=== PATIENT | male | born 1965 | race Two or more races ===

== ENCOUNTER 2023-01-21 19:37 | Inpatient (IN) | payer MEDICAID, OTHER ==
[~2023-01-21] VITALS: Ht 180.3 cm; Wt 86.0 kg
[2023-01-21 20:38] LABS: Basophils # (auto) 0 10 ^3/uL (0-0.2); Basophils % (auto) 0.5 % (0.0-2.0); Eosinophils # (auto) 0 10 ^3/uL (0-0.8); Eosinophils % (auto) 0.2 % (0.0-7.0); Hematocrit 40.1 % (41.0-53.0); Hemoglobin 13.3 g/dL (13.5-17.5); Lymphocytes # (auto) 1.9 10 ^3/uL (0.4-5.4); Lymphocytes % (auto) 23.2 % (10.0-50.0); Mean Corpuscular Hemoglobin 28.9 pg (28.0-32.0); Mean Corpuscular Hgb Conc. 33.2 g/dL (32.0-36.0); Monocytes # (auto) 0.4 10 ^3/uL (0-1.3); Monocytes % (auto) 4.7 % (0.0-12.0); Neutrophils # (auto) 5.9 10 ^3/uL (1.6-8.6); Neutrophils % (auto) 71.4 % (37.0-80.0); Nucleated Red Blood Cells % 0.2 %; Red Blood Cells 4.61 10^6/uL (4.5-5.90); Red Cell Distribution Width 14.1 % (11.8-14.3); White Blood Cell 8.3 10^3/uL (4.4-10.8)
[2023-01-21 20:42] LABS: Urine Bacteria NONE SEEN /hpf (None Seen); Urine Blood Negative /uL (Negative); Urine Clarity Clear (Clear); Urine Color Yellow (Yellow); Urine Mucus FEW (None Seen); Urine Protein, UAD TRACE (Negative); Urine Specific Gravity 1.029 (1.001-1.035); Urine Urobilinogen Normal (Negative); Urine WBC 1 /hpf (0 - 3); Urine pH 5.5 (5.0-8.0)
[2023-01-21 20:58] LABS: Albumin 3.8 g/dL (3.4-5.0); Calcium 8.7 mg/dL (8.5-10.1); Potassium 4.2 mmol/L (3.5-5.1)
[2023-01-21 21:01] LABS: BUN/Creatinine Ratio 19.1 (10.0-20.0); Total Protein 6.9 g/dL (6.4-8.2)
[2023-01-21] MEDS ORDERED: IOHEXOL 350 MG/ML 100ML IJ ONE (23:23)
[2023-01-21] MEDS ORDERED: MORPHINE SULFATE 4 MG/ML SYR/VIAL IV ONE (23:30)
[2023-01-21] MEDS ORDERED: ONDANSETRON HCL 4 MG/2 ML VIAL IV ONE (23:30)
[2023-01-21] MEDS ORDERED: ASPirin 325 MG TAB PO ONE (23:30)
[2023-01-21] MEDS ORDERED: HEPARIN SODIUM (PORCINE) 5000 UNITS/ML 1ML VIAL IV ONE (23:30)
[2023-01-22] VITALS (11 sets, daily range): BP systolic 95–104; BP diastolic 69–77; PULSE 77–97; RESP 15–23; TEMP 97.7–98.3; O2SAT 91–96
[2023-01-22] MEDS ORDERED: MORPHINE SULFATE INJ 2 MG/ml SYRG IM ONE
[2023-01-22 00:10] LABS: INR 1.07 (0.9-1.15); Partial Thromboplastin Time 28.2 SEC (24.5-34.5); Prothrombin Time 11.2 sec (9.3-11.8)
[2023-01-22] MEDS ORDERED: FUROSEMIDE 20 MG/2 ML VIAL IV ONE (00:45)
[2023-01-22] MEDS ORDERED: ACETAMINOPHEN 325 MG TAB PO PRN (00:45)
[2023-01-22] MEDS ORDERED: AZITHROMYCIN 500MG/ 250ML 250 ML IV ONE (00:45)
[2023-01-22] MEDS ORDERED: NITROGLYCERIN 0.4 MG SL TAB SL PRN (00:45)
[2023-01-22] MEDS ORDERED: MORPHINE SULFATE INJ 2 MG/ml SYRG IV PRN ×2 (00:45)
[2023-01-22] MEDS ORDERED: DOCUSATE SOD 100 MG CAP PO PRN (00:45)
[2023-01-22] MEDS ORDERED: ONDANSETRON HCL 4 MG/2 ML VIAL IV PRN (00:45)
[2023-01-22] MEDS ORDERED: HYDROcodone-ACET 5/325MG TAB PO PRN (00:45)
[2023-01-22] MEDS ORDERED: DEXTROSE (50%) 50ML SYRG IV PRN (00:45)
[2023-01-22 03:45] LABS: Rapid Influenza A Negative (Negative)
[2023-01-22 03:46] LABS: COVID19 ANTIGEN SOFIA FIA NEGATIVE (NEGATIVE); Rapid Influenza B Negative (Negative)
[2023-01-22 05:34] LABS: Potassium 3.8 mmol/L (3.5-5.1)
[2023-01-22 05:43] LABS: Albumin 3.8 g/dL (3.4-5.0); BUN/Creatinine Ratio 17.2 (10.0-20.0); Bilirubin, Total 2.2 mg/dL (0.2-1.0); Calcium 8.7 mg/dL (8.5-10.1); Total Protein 7.4 g/dL (6.4-8.2)
[2023-01-22 05:48] LABS: Basophils # (auto) 0.1 10 ^3/uL (0-0.2); Basophils % (auto) 0.6 % (0.0-2.0); Eosinophils # (auto) 0.1 10 ^3/uL (0-0.8); Eosinophils % (auto) 1.1 % (0.0-7.0); Hematocrit 39.7 % (41.0-53.0); Hemoglobin 13.4 g/dL (13.5-17.5); Lymphocytes # (auto) 3.8 10 ^3/uL (0.4-5.4); Lymphocytes % (auto) 42.4 % (10.0-50.0); Mean Corpuscular Hemoglobin 29.4 pg (28.0-32.0); Mean Corpuscular Hgb Conc. 33.6 g/dL (32.0-36.0); Mean Corpuscular Volume 87.4 fL (80.0-100.0); Monocytes # (auto) 0.6 10 ^3/uL (0-1.3); Monocytes % (auto) 6.5 % (0.0-12.0); Neutrophils # (auto) 4.4 10 ^3/uL (1.6-8.6); Neutrophils % (auto) 49.4 % (37.0-80.0); Nucleated Red Blood Cells % 0.1 %; Red Blood Cells 4.54 10^6/uL (4.5-5.90); Red Cell Distribution Width 13.4 % (11.8-14.3); White Blood Cell 8.9 10^3/uL (4.4-10.8)
[2023-01-22] MEDS: SODIUM CHLOR 0.9% PF (SALINE LOCK) 10ML VIAL/SYR IV SCH ×3 (06:11→21:36)
[2023-01-22] MEDS: ACCU-CHEK COMFORT CURVE STRIP VI SCH ×4 (07:55→21:30)
[2023-01-22] MEDS: InsuLIN REG 1unit/0.01ml Soln (100units/ml) SC SCH ×4 (07:58→21:35)
[2023-01-22] MEDS ORDERED: SODIUM CHLORIDE 0.9% 1,000 ML IV ONE (08:15)
[2023-01-22 09:14] LABS: Cholesterol 150 mg/dL (< 200); HDL Cholesterol 41 mg/dL (40-59); LDL Cholesterol 95 mg/dL (< 100); Triglycerides 125 mg/dL (< 150)
[2023-01-22 09:14] LABS: Alcohol, Urine < 3.0 mg/dL (0-10); Amphetamine Screen, Urine NEGATIVE (NEGATIVE); Barbiturate Scree,Urine NEGATIVE (NEGATIVE); Benzodiazephine Screen, Urine NEGATIVE (NEGATIVE); Cannabinoid Screen, Urine NEGATIVE (NEGATIVE); Cocaine Screen, Urine NEGATIVE (NEGATIVE); Opiate Scree,Urine NEGATIVE (NEGATIVE); Phencyclidine Screen, Urine NEGATIVE (NEGATIVE)
[2023-01-22] MEDS: ASPirin 81 mg TAB PO SCH (10:00)
[2023-01-22] MEDS: FUROSEMIDE 40 MG/4 ML VIAL IV SCH (10:00)
[2023-01-22] MEDS: HEPARIN DRIP/D5W 100UNITS/ML 250 ML IV SCH (11:11)
[2023-01-22] MEDS ORDERED: METF-372 PO (12:19)
[2023-01-22] MEDS ORDERED: LIDOCAINE 2%HCL (LOCAL ANESTH.) INJ 20ML MDV ONE (13:03)
[2023-01-22] MEDS ORDERED: IOHEXOL 350 MG/ML 100ML IJ ONE (13:03)
[2023-01-22] MEDS ORDERED: ANGIOMAX 250 MG VIAL IV ONE (13:07)
[2023-01-22] MEDS ORDERED: fentaNYL CITRATE 100 MCG/2 ML VL ONE (13:08)
[2023-01-22] MEDS ORDERED: VERAPAMIL 2.5MG/ML INJ 2ML VIAL IV ONE (13:08)
[2023-01-22] MEDS ORDERED: SODIUM CHL 0.9% 50 ML ONE (13:08)
[2023-01-22] MEDS ORDERED: MIDAZOLAM HCL 2MG/2ML 2ml VIAL (1mg/ml) ONE (13:08)
[2023-01-22] MEDS ORDERED: HEPARIN SODIUM (PORCINE) 5000 UNITS/ML 1ML VIAL ONE (13:10)
[2023-01-22] MEDS: ATORVASTATIN 20 MG TAB PO SCH (21:35)
[2023-01-22] MEDS ORDERED: AZITHROMYCIN 500MG/ 250ML 250 ML IV SCH (22:00)
[2023-01-23] VITALS (7 sets, daily range): BP systolic 99–113; BP diastolic 70–80; PULSE 83–93; RESP 16–21; TEMP 97.5–98.7; O2SAT 97–98
[2023-01-23] MEDS: HEPARIN DRIP/D5W 100UNITS/ML 250 ML IV SCH (00:30)
[2023-01-23] MEDS: SODIUM CHLOR 0.9% PF (SALINE LOCK) 10ML VIAL/SYR IV SCH ×3 (05:47→21:48)
[2023-01-23 06:14] LABS: Basophils # (auto) 0.1 10 ^3/uL (0-0.2); Basophils % (auto) 0.9 % (0.0-2.0); Eosinophils # (auto) 0.4 10 ^3/uL (0-0.8); Eosinophils % (auto) 4.5 % (0.0-7.0); Lymphocytes # (auto) 2.5 10 ^3/uL (0.4-5.4); Lymphocytes % (auto) 31.9 % (10.0-50.0); Mean Corpuscular Hemoglobin 29.1 pg (28.0-32.0); Mean Corpuscular Hgb Conc. 33.4 g/dL (32.0-36.0); Mean Corpuscular Volume 87.1 fL (80.0-100.0); Monocytes # (auto) 0.6 10 ^3/uL (0-1.3); Monocytes % (auto) 7.7 % (0.0-12.0); Neutrophils # (auto) 4.4 10 ^3/uL (1.6-8.6); Nucleated Red Blood Cells % 0.1 %; Red Blood Cells 4.47 10^6/uL (4.5-5.90); Red Cell Distribution Width 13.7 % (11.8-14.3)
[2023-01-23] MEDS: ACCU-CHEK COMFORT CURVE STRIP VI SCH ×4 (06:29→21:48)
[2023-01-23] MEDS: InsuLIN REG 1unit/0.01ml Soln (100units/ml) SC SCH ×4 (06:31→21:51)
[2023-01-23 06:38] LABS: Potassium 4.4 mmol/L (3.5-5.1)
[2023-01-23 06:41] LABS: Albumin 3.3 g/dL (3.4-5.0); BUN/Creatinine Ratio 22.6 (10.0-20.0); Calcium 8.4 mg/dL (8.7-10.4)
[2023-01-23 06:52] LABS: Total Protein 6.4 g/dL (6.4-8.2)
[2023-01-23] MEDS ORDERED: ADENOSINE 80 MG in GIVE UN-DILUTED 0 ML IV STA (08:57)
[2023-01-23] MEDS: ASPirin 81 mg TAB PO SCH (09:49)
[2023-01-23] MEDS: FUROSEMIDE 40 MG/4 ML VIAL IV SCH (09:51)
[2023-01-23] MEDS: METOPROLOL SUCCINATE XL 50 MG TAB PO SCH (11:39)
[2023-01-23] MEDS: VALSARTAN 80 MG TAB PO SCH (11:40)
[2023-01-23] MEDS: DOXYCYCLINE 100MG/250ML 250 ML IV SCH ×2 (11:40→23:02)
[2023-01-23] MEDS: ATORVASTATIN 20 MG TAB PO SCH (21:52)
[2023-01-23] MEDS ORDERED: CARVEDILOL 3.125 MG TAB PO SCH (22:00)
[2023-01-24] VITALS (8 sets, daily range): BP systolic 99–107; BP diastolic 58–83; PULSE 68–95; RESP 16–20; TEMP 97.7–99; O2SAT 91–100
[2023-01-24] MEDS: HEPARIN DRIP/D5W 100UNITS/ML 250 ML IV SCH (00:30)
[2023-01-24] MEDS: SODIUM CHLOR 0.9% PF (SALINE LOCK) 10ML VIAL/SYR IV SCH ×3 (05:50→21:34)
[2023-01-24] MEDS: ACCU-CHEK COMFORT CURVE STRIP VI SCH ×4 (06:32→21:35)
[2023-01-24] MEDS: InsuLIN REG 1unit/0.01ml Soln (100units/ml) SC SCH ×4 (06:34→21:39)
[2023-01-24] MEDS: EMPAGLIFLOZIN 10 MG TAB PO SCH (10:15)
[2023-01-24] MEDS ORDERED: FUROSEMIDE 20 MG/2 ML VIAL IV PRN (10:15)
[2023-01-24] MEDS: FUROSEMIDE 40 MG/4 ML VIAL IV SCH (10:17)
[2023-01-24] MEDS: ASPirin 81 mg TAB PO SCH (10:18)
[2023-01-24] MEDS: METOPROLOL SUCCINATE XL 50 MG TAB PO SCH (10:18)
[2023-01-24] MEDS: VALSARTAN 80 MG TAB PO SCH (10:19)
[2023-01-24] MEDS: DOXYCYCLINE 100MG/250ML 250 ML IV SCH ×2 (11:18→22:43)
[2023-01-24] MEDS: ATORVASTATIN 20 MG TAB PO SCH (21:33)
[2023-01-25] VITALS (7 sets, daily range): BP systolic 97–106; BP diastolic 67–75; PULSE 66–91; RESP 16–18; TEMP 97.6–98.6; O2SAT 90–97
[2023-01-25] MEDS: HEPARIN DRIP/D5W 100UNITS/ML 250 ML IV SCH (00:30)
[2023-01-25] MEDS: SODIUM CHLOR 0.9% PF (SALINE LOCK) 10ML VIAL/SYR IV SCH ×3 (06:00→21:55)
[2023-01-25 06:08] LABS: Basophils # (auto) 0.1 10 ^3/uL (0-0.2); Basophils % (auto) 0.9 % (0.0-2.0); Eosinophils # (auto) 0.5 10 ^3/uL (0-0.8); Eosinophils % (auto) 6.4 % (0.0-7.0); Hematocrit 42.3 % (41.0-53.0); Hemoglobin 13.9 g/dL (13.5-17.5); Lymphocytes # (auto) 2.6 10 ^3/uL (0.4-5.4); Lymphocytes % (auto) 33.4 % (10.0-50.0); Mean Corpuscular Hemoglobin 28.7 pg (28.0-32.0); Mean Corpuscular Hgb Conc. 32.9 g/dL (32.0-36.0); Mean Corpuscular Volume 87.1 fL (80.0-100.0); Monocytes # (auto) 0.6 10 ^3/uL (0-1.3); Monocytes % (auto) 7.8 % (0.0-12.0); Neutrophils % (auto) 51.5 % (37.0-80.0); Nucleated Red Blood Cells % 0.2 %; Red Blood Cells 4.86 10^6/uL (4.5-5.90); Red Cell Distribution Width 13.7 % (11.8-14.3); White Blood Cell 7.7 10^3/uL (4.4-10.8)
[2023-01-25 06:20] LABS: Anion Gap 5.8 (5-15); Carbon Dioxide 28.2 mmol/L (20-30); Chloride 104 mmol/L (98-107); Potassium 4.1 mmol/L (3.5-5.1); Sodium 138 mmol/L (136-145)
[2023-01-25 06:27] LABS: BUN/Creatinine Ratio 13.8 (10.0-20.0); Blood Urea Nitrogen 11 mg/dL (9-23); Glucose 117 mg/dL (74-106)
[2023-01-25] MEDS: InsuLIN REG 1unit/0.01ml Soln (100units/ml) SC SCH ×4 (06:35→21:32)
[2023-01-25] MEDS: ACCU-CHEK COMFORT CURVE STRIP VI SCH ×4 (06:35→21:19)
[2023-01-25] MEDS: EMPAGLIFLOZIN 10 MG TAB PO SCH (09:29)
[2023-01-25] MEDS: ASPirin 81 mg TAB PO SCH (09:30)
[2023-01-25] MEDS: SPIRONOLACTONE 25 MG TAB PO SCH (09:31)
[2023-01-25] MEDS: VALSARTAN 80 MG TAB PO SCH (09:31)
[2023-01-25] MEDS: METOPROLOL SUCCINATE XL 50 MG TAB PO SCH (09:32)
[2023-01-25] MEDS: FUROSEMIDE 40 MG/4 ML VIAL IV SCH ×3 (09:32→10:00)
[2023-01-25] MEDS: DOXYCYCLINE 100MG/250ML 250 ML IV SCH ×2 (11:25→23:11)
[2023-01-25] MEDS: ATORVASTATIN 20 MG TAB PO SCH (21:19)
[2023-01-26] MEDS: HEPARIN DRIP/D5W 100UNITS/ML 250 ML IV SCH (00:06)
[2023-01-26 05:00] VITALS: BP 97/61; PULSE 85; RESP 18; TEMP 98.2; O2SAT 98
[2023-01-26] MEDS: SODIUM CHLOR 0.9% PF (SALINE LOCK) 10ML VIAL/SYR IV SCH (05:37)
[2023-01-26] MEDS: ACCU-CHEK COMFORT CURVE STRIP VI SCH (06:14)
[2023-01-26] MEDS: InsuLIN REG 1unit/0.01ml Soln (100units/ml) SC SCH (06:14)
[2023-01-26 08:00] VITALS: BP 107/69; PULSE 75; PULSE 83; RESP 16; TEMP 98.4; O2SAT 99
[2023-01-26] MEDS: FUROSEMIDE 40 MG/4 ML VIAL IV SCH (08:35)
[2023-01-26] MEDS: EMPAGLIFLOZIN 10 MG TAB PO SCH (08:39)
[2023-01-26] MEDS: METOPROLOL SUCCINATE XL 50 MG TAB PO SCH (08:40)
[2023-01-26] MEDS: ASPirin 81 mg TAB PO SCH (08:41)
[2023-01-26] MEDS: SPIRONOLACTONE 25 MG TAB PO SCH (08:41)
[2023-01-26] MEDS: VALSARTAN 80 MG TAB PO SCH (08:42)
[2023-01-26] MEDS ORDERED: SPIR25TA PO (09:59)
[2023-01-26] MEDS ORDERED: METO25TA93 PO (09:59)
[2023-01-26] MEDS ORDERED: ATO40T PO (09:59)
[2023-01-26] MEDS ORDERED: ASPI-498 PO (09:59)
[2023-01-26] MEDS ORDERED: FURO1TAB31 PO (09:59)
[2023-01-26] MEDS ORDERED: VALS40TA2 PO (10:11)
[2023-01-26 10:57] VITALS: BP 107/69; PULSE 83; RESP 16; TEMP 36.9; O2SAT 95
== END 2023-01-26 12:40 | disposition home or self-care (01) | DRG 192 ==
LOC: ER 19:40 → TELE 01-22 00:42 → TELE-EAST 01-22 10:48
PROVIDERS: ADMIT Nurse Practitioner Family; ATTEND Family Medicine
PROC: B211YZZ Fluoroscopy of Multiple Coronary Arteries using Other Contrast (ICD-10-PCS; principal; 2023-01-22)
DX: I50.21 Acute systolic (congestive) heart failure (principal); I42.0 Dilated cardiomyopathy; J18.9 Pneumonia, unspecified organism; E11.65 Type 2 diabetes mellitus with hyperglycemia; E66.9 Obesity, unspecified; Z86.16 Personal history of COVID-19; I42.9 Cardiomyopathy, unspecified; I34.0 Nonrheumatic mitral (valve) insufficiency; I25.10 Atherosclerotic heart disease of native coronary artery without angina pectoris; M25.512 Pain in left shoulder; I25.5 Ischemic cardiomyopathy; R94.31 Abnormal electrocardiogram [ECG] [EKG]; Z68.26 Body mass index [BMI] 26.0-26.9, adult; I25.2 Old myocardial infarction; Z87.01 Personal history of pneumonia (recurrent)
CPT/HCPCS: 36415; 71045; 71275; 78452; 80048; 80053; 80061; 80307; 81001; 82962; 83036; 83605; 83880; 84443; 84484; 85025; 85379; 85610; 85730; 87426; 87804; 93005; 93017; 93306; 93454; 99152; 99291; G0378; J0153; J1815; J2250; J2405; J3490

== ENCOUNTER 2023-06-02 20:54 | Emergency (ER) | payer MEDICAID ==
[~2023-06-02] VITALS: Ht 182.9 cm; Wt 84.5 kg
[~2023-06-02 20:54] MED LIST: ASPI-498 PO; ATO40T PO; FURO1TAB31 PO; METF-372 PO; METO25TA93 PO; SPIR25TA PO; VALS40TA2 PO
[2023-06-02 21:18] LABS: Basophils # (auto) 0.1 10 ^3/uL (0-0.2); Eosinophils # (auto) 0.3 10 ^3/uL (0-0.8); Eosinophils % (auto) 3.5 % (0.0-7.0); Hematocrit 45.6 % (41.0-53.0); Hemoglobin 15.7 g/dL (13.5-17.5); Lymphocytes # (auto) 4.5 10 ^3/uL (0.4-5.4); Lymphocytes % (auto) 53.7 % (10.0-50.0); Mean Corpuscular Hemoglobin 30.5 pg (28.0-32.0); Mean Corpuscular Hgb Conc. 34.3 g/dL (32.0-36.0); Mean Corpuscular Volume 88.9 fL (80.0-100.0); Monocytes # (auto) 0.6 10 ^3/uL (0-1.3); Monocytes % (auto) 6.8 % (0.0-12.0); Neutrophils # (auto) 2.9 10 ^3/uL (1.6-8.6); Nucleated Red Blood Cells % 0.1 %; Red Blood Cells 5.12 10^6/uL (4.5-5.90); Red Cell Distribution Width 15.2 % (11.8-14.3); White Blood Cell 8.3 10^3/uL (4.4-10.8)
[2023-06-02 21:32] LABS: INR 1.01 (0.9-1.15); Partial Thromboplastin Time 28.8 SEC (24.5-34.5); Prothrombin Time 10.6 sec (9.3-11.8)
[2023-06-02 21:39] LABS: Albumin 4.7 g/dL (3.2-4.8); Alkaline Phosphatase 132 U/L (46-116); Anion Gap 8 (5-15); BUN/Creatinine Ratio 26.1 (10.0-20.0); Bilirubin, Total 2.9 mg/dL (0.2-1.0); Blood Urea Nitrogen 24 mg/dL (9-23); Calcium 9.4 mg/dL (8.7-10.4); Carbon Dioxide 26 mmol/L (20-30); Chloride 104 mmol/L (98-107); Glucose 172 mg/dL (74-106); Magnesium 2.2 mg/dL (1.6-2.6); Sodium 138 mmol/L (136-145)
[2023-06-02 22:51] VITALS: BP 96/65; TEMP 98.1; O2SAT 96
[2023-06-02 22:52] VITALS: PULSE 68; RESP 18
[2023-06-02 23:03] LABS: Alanine Aminotransferase 44 U/L (7-40); Aspartate Aminotransferase 29 U/L (13-40)
== END 2023-06-02 22:33 | disposition home or self-care (01) ==
LOC: ER 20:54
DX: I25.10 Atherosclerotic heart disease of native coronary artery without angina pectoris (principal); I49.3 Ventricular premature depolarization; R00.2 Palpitations; E11.9 Type 2 diabetes mellitus without complications; I50.9 Heart failure, unspecified; Z98.890 Other specified postprocedural states; Z79.899 Other long term (current) drug therapy
CPT/HCPCS: 36415; 71045; 80053; 83735; 83880; 84484; 85025; 85610; 85730; 93005

== ENCOUNTER 2024-01-29 16:09 | Inpatient (IN) | payer MEDICAID ==
[~2024-01-29] VITALS: Ht 182.9 cm; Wt 80.2 kg
[~2024-01-29 16:09] MED LIST changes: -ATO40T PO; +ATOR-507 PO
[2024-01-29 17:06] LABS: Basophils # (auto) 0.1 10 ^3/uL (0-0.2); Basophils % (auto) 0.5 % (0.0-2.0); Eosinophils # (auto) 0.2 10 ^3/uL (0-0.8); Eosinophils % (auto) 1.6 % (0.0-7.0); Hemoglobin 16.7 g/dL (13.5-17.5); Lymphocytes # (auto) 3.3 10 ^3/uL (0.4-5.4); Lymphocytes % (auto) 33.7 % (10.0-50.0); Mean Corpuscular Hemoglobin 31.6 pg (28.0-32.0); Mean Corpuscular Hgb Conc. 35.4 g/dL (32.0-36.0); Mean Corpuscular Volume 89.2 fL (80.0-100.0); Monocytes # (auto) 0.8 10 ^3/uL (0-1.3); Monocytes % (auto) 7.6 % (0.0-12.0); Neutrophils # (auto) 5.6 10 ^3/uL (1.6-8.6); Neutrophils % (auto) 56.6 % (37.0-80.0); Nucleated Red Blood Cells % 0.2 %; Platelet Count (auto) 206 10^3/uL (140-450); Red Blood Cells 5.27 10^6/uL (4.5-5.90); Red Cell Distribution Width 13.5 % (11.8-14.3); White Blood Cell 9.9 10^3/uL (4.4-10.8)
[2024-01-29 17:21] LABS: Alanine Aminotransferase 40 U/L (7-40); Albumin 5.2 g/dL (3.2-4.8); Alkaline Phosphatase 86 U/L (46-116); Anion Gap 3 (5-15); Aspartate Aminotransferase 20 U/L (13-40); BUN/Creatinine Ratio 20.4 (10.0-20.0); Blood Urea Nitrogen 21 mg/dL (9-23); Carbon Dioxide 30 mmol/L (20-30); Chloride 105 mmol/L (98-107); Glucose 113 mg/dL (74-106); Magnesium 2.1 mg/dL (1.6-2.6); Potassium 4.7 mmol/L (3.5-5.1); Sodium 138 mmol/L (136-145)
[2024-01-29 17:22] LABS: Bilirubin, Total 3.2 mg/dL (0.2-1.0)
[2024-01-29 19:14] LABS: Urine Bacteria None Seen /hpf (None Seen)
[2024-01-29 19:35] LABS: Urine Blood Negative /uL (Negative); Urine Clarity Clear (Clear); Urine Color Light-Yellow (Yellow); Urine Protein, UAD Negative (Negative); Urine Specific Gravity 1.035 (1.001-1.035); Urine Urobilinogen Normal (Negative); Urine WBC 1 /hpf (0 - 3); Urine pH 5.5 (5.0-9.0)
[2024-01-29] MEDS: ASPirin 325 MG TAB PO ONE (21:39)
[2024-01-29] MEDS ORDERED: ONDANSETRON HCL 4 MG/2 ML VIAL IV PRN (22:45)
[2024-01-29] MEDS ORDERED: ACETAMINOPHEN 325 MG TAB PO PRN (22:45)
[2024-01-29] MEDS ORDERED: NITROGLYCERIN 0.4 MG SL TAB SL PRN (22:45)
[2024-01-29] MEDS ORDERED: DEXTROSE (50%) 50ML SYRG IV PRN (22:45)
[2024-01-29] MEDS ORDERED: MORPHINE SULFATE INJ 2 MG/ml SYRG IV PRN (22:45)
[2024-01-30] MEDS: NITROGLYCERIN 0.4 MG SL TAB SL ONE (00:19)
[2024-01-30 05:11] LABS: Anion Gap 6 (5-15); Carbon Dioxide 26 mmol/L (20-30); Chloride 106 mmol/L (98-107); Potassium 4.1 mmol/L (3.5-5.1); Sodium 138 mmol/L (136-145)
[2024-01-30 05:13] LABS: Calcium 9.7 mg/dL (8.7-10.4)
[2024-01-30 05:17] LABS: Glucose 120 mg/dL (74-106)
[2024-01-30 05:18] LABS: BUN/Creatinine Ratio 21.5 (10.0-20.0); Blood Urea Nitrogen 20 mg/dL (9-23)
[2024-01-30 07:30] VITALS: PULSE 76; RESP 12; O2SAT 97
[2024-01-30] MEDS ORDERED: ASPI-543 PO (07:36)
[2024-01-30] MEDS ORDERED: DAPA1TAB4 PO (07:36)
[2024-01-30] MEDS ORDERED: ATOR-507 PO (07:36)
[2024-01-30] MEDS ORDERED: METO-159 PO (07:36)
[2024-01-30] MEDS ORDERED: SPIR25TA8 PO (07:36)
[2024-01-30] MEDS: ACCU-CHEK COMFORT CURVE STRIP VI SCH (07:36)
[2024-01-30] MEDS ORDERED: SACU1TAB PO (07:36)
[2024-01-30] MEDS: InsuLIN REG 1unit/0.01ml Soln (100units/ml) SC SCH (07:42)
[2024-01-30] MEDS: SACUBITRIL-VALSARTAN 24mg/26mg TAB PO SCH (09:32)
[2024-01-30] MEDS: SPIRONOLACTONE 25 MG TAB PO SCH (09:32)
[2024-01-30] MEDS: METOPROLOL SUCCINATE XL 50 MG TAB PO SCH (09:32)
[2024-01-30] MEDS: FUROSEMIDE 40 MG TAB PO SCH (09:33)
[2024-01-30] MEDS: ASPirin 81 mg TAB PO SCH (09:33)
[2024-01-30] MEDS: ENOXAPARIN SOD 40 MG/0.4 ML SYRINGE SC SCH (10:00)
[2024-01-30 10:21] LABS: Amphetamine Screen, Urine Neg (NEGATIVE); Barbiturate Scree,Urine Neg (NEGATIVE); Benzodiazephine Screen, Urine Neg (NEGATIVE); Cannabinoid Screen, Urine Neg (NEGATIVE); Cocaine Screen, Urine Neg (NEGATIVE); Opiate Scree,Urine Neg (NEGATIVE); Phencyclidine Screen, Urine Neg (NEGATIVE)
[2024-01-30 15:23] VITALS: BP 106/69; PULSE 65; RESP 20; TEMP 97.6; O2SAT 99
[2024-01-30] MEDS: FUROSEMIDE 40 MG/4 ML VIAL IV ONE (15:30)
[2024-01-30] MEDS ORDERED: METO-289 PO (18:44)
[2024-01-30] MEDS ORDERED: METF500S3 PO (18:45)
[2024-01-30 20:00] VITALS: PULSE 69; PULSE 70; RESP 17; O2SAT 94
[2024-01-30 21:00] VITALS: BP 109/70; PULSE 70; RESP 17; TEMP 98.3; O2SAT 94
[2024-01-30] MEDS: ATORVASTATIN 20 MG TAB PO SCH (21:57)
[2024-01-31] VITALS (7 sets, daily range): BP systolic 98–112; BP diastolic 59–68; PULSE 53–96; RESP 16–18; TEMP 36.7; O2SAT 94–98
[2024-01-31 06:04] LABS: Magnesium 2.2 mg/dL (1.6-2.6)
[2024-01-31 09:13] LABS: Basophils # (auto) 0 10 ^3/uL (0-0.2); Basophils % (auto) 0.5 % (0.0-2.0); Eosinophils # (auto) 0.2 10 ^3/uL (0-0.8); Eosinophils % (auto) 2.5 % (0.0-7.0); Hematocrit 48.4 % (41.0-53.0); Hemoglobin 16.6 g/dL (13.5-17.5); Lymphocytes # (auto) 2.9 10 ^3/uL (0.4-5.4); Lymphocytes % (auto) 37.1 % (10.0-50.0); Mean Corpuscular Hemoglobin 30.7 pg (28.0-32.0); Mean Corpuscular Hgb Conc. 34.2 g/dL (32.0-36.0); Mean Corpuscular Volume 89.6 fL (80.0-100.0); Monocytes # (auto) 0.6 10 ^3/uL (0-1.3); Monocytes % (auto) 7.4 % (0.0-12.0); Neutrophils # (auto) 4.1 10 ^3/uL (1.6-8.6); Neutrophils % (auto) 52.5 % (37.0-80.0); Nucleated Red Blood Cells % 0.1 %; Platelet Count (auto) 200 10^3/uL (140-450); Red Cell Distribution Width 13.2 % (11.8-14.3); White Blood Cell 7.8 10^3/uL (4.4-10.8)
[2024-01-31] MEDS: FUROSEMIDE 40 MG/4 ML VIAL IV SCH (09:37)
[2024-01-31] MEDS: ASPirin 81 mg TAB PO SCH (09:38)
[2024-01-31] MEDS ORDERED: ATOR-507 PO (10:45)
== END 2024-01-31 18:11 | disposition home or self-care (01) | DRG 194 ==
LOC: ER 16:09 → TELE 22:50 → TELE-CENTR 01-30 14:58
PROVIDERS: ADMIT Nurse Practitioner; ATTEND Internal Medicine Geriatric Medicine
DX: I11.0 Hypertensive heart disease with heart failure (principal); E11.9 Type 2 diabetes mellitus without complications; I50.43 Acute on chronic combined systolic (congestive) and diastolic (congestive) heart failure; I25.10 Atherosclerotic heart disease of native coronary artery without angina pectoris; E78.5 Hyperlipidemia, unspecified; I25.5 Ischemic cardiomyopathy; I25.2 Old myocardial infarction; Z79.82 Long term (current) use of aspirin; Z79.899 Other long term (current) drug therapy; Z79.84 Long term (current) use of oral hypoglycemic drugs; Z83.3 Family history of diabetes mellitus
CPT/HCPCS: 36415; 71045; 80048; 80053; 80061; 80307; 81001; 82962; 83735; 83880; 84443; 84484; 85025; 93005; 93306; G0378; J1815

== ENCOUNTER 2024-02-28 13:01 | Emergency (ER) | payer MEDICAID ==
[~2024-02-28] VITALS: Ht 182.9 cm; Wt 8.2 kg
[~2024-02-28 13:01] MED LIST changes: +DAPA1TAB4 PO; -METF-372 PO; +METF500S3 PO; +METO-289 PO; -METO25TA93 PO; +SACU1TAB PO; -SPIR25TA PO; +SPIR25TA8 PO; -VALS40TA2 PO
[2024-02-28] MEDS: ASPirin 325 MG TAB PO ONE (14:12)
[2024-02-28] MEDS: MECLIZINE HCL 25 MG TAB PO ONE (14:12)
[2024-02-28 14:14] VITALS: BP 112/75; PULSE 67; RESP 17; TEMP 98.9; O2SAT 97
[2024-02-28 14:21] LABS: Basophils # (auto) 0.1 10 ^3/uL (0-0.2); Basophils % (auto) 0.8 % (0.0-2.0); Eosinophils # (auto) 0.2 10 ^3/uL (0-0.8); Eosinophils % (auto) 2.8 % (0.0-7.0); Hematocrit 47.9 % (41.0-53.0); Hemoglobin 16.8 g/dL (13.5-17.5); Lymphocytes # (auto) 2.5 10 ^3/uL (0.4-5.4); Lymphocytes % (auto) 33.8 % (10.0-50.0); Mean Corpuscular Hemoglobin 31.4 pg (28.0-32.0); Mean Corpuscular Volume 89.7 fL (80.0-100.0); Monocytes # (auto) 0.5 10 ^3/uL (0-1.3); Monocytes % (auto) 6.6 % (0.0-12.0); Neutrophils # (auto) 4.2 10 ^3/uL (1.6-8.6); Nucleated Red Blood Cells % 0.1 %; Platelet Count (auto) 195 10^3/uL (140-450); Red Blood Cells 5.34 10^6/uL (4.5-5.90); Red Cell Distribution Width 13.1 % (11.8-14.3); White Blood Cell 7.5 10^3/uL (4.4-10.8)
[2024-02-28 14:40] LABS: Chloride 104 mmol/L (98-107); Potassium 4.6 mmol/L (3.5-5.1); Sodium 138 mmol/L (136-145)
[2024-02-28 14:41] LABS: Anion Gap 6 (5-15); Carbon Dioxide 28 mmol/L (20-31)
[2024-02-28 14:42] LABS: Calcium 9.8 mg/dL (8.7-10.4)
[2024-02-28 14:47] LABS: BUN/Creatinine Ratio 23.1 (10.0-20.0); Blood Urea Nitrogen 21 mg/dL (9-23); Glucose 155 mg/dL (74-106)
== END 2024-02-28 20:05 | disposition left against medical advice (07) ==
LOC: ER 13:01
DX: G90.9 Disorder of the autonomic nervous system, unspecified (principal); E11.65 Type 2 diabetes mellitus with hyperglycemia; R42 Dizziness and giddiness; I11.0 Hypertensive heart disease with heart failure; I50.9 Heart failure, unspecified
CPT/HCPCS: 36415; 70450; 80048; 82962; 84484; 85025; 99284; J8597

== ENCOUNTER 2025-01-11 22:34 | Emergency (ER) | payer MEDICAID ==
[~2025-01-11] VITALS: Ht 182.9 cm; Wt 88.7 kg
--- NOTE | 2025-01-12 02:08 | ED.PDOC ---
Eye-HPI HPI Comments PT CAME TO THE ER WITH CC EYE IRRITATION, PT STATES THAT HE FEELS PRESSURE BEHIND THE RIGHT EYE AND HE HAS "A BIG FLOATER". PT IS A&OX4 RR EVEN AND REGULAR NO DISTRESS NOTED AT THIS TIME. PATIENT STATES RECENT BLOOD SUGARS OF 103. PT DENIES N/V/D CP SOB, VISION CHANGES, LOSS OF VISION, FLASHES, KNOWN INJURY, FEVER, CHILLS, HEADACHE, NAUSEA OR VOMITING. Chief Complaint: Eye Problem Time Seen by MD: 23:03 Primary Care Provider: DB MICHAEL Reviewed Notes: Nurses Notes, Medications, Allergies Allergies: Coded Allergies: NO KNOWN ALLERGIES (Unverified , 01/21/23) Home Meds Active Scripts Atorvastatin Calcium (Lipitor) 40 Mg Tab, 1 TAB PO DAILY, #30 TAB 5 Refills Prov:BRIEN CASPER MD 01/31/24 Furosemide (Lasix) 40 Mg Tab, 40 MG PO DAILY, #90 TAB Prov:CARLOTA GR MD 01/26/23 Atorvastatin Calcium (Lipitor) 40 Mg Tab, 1 TAB PO QPM, #90 TAB 1 Refill Prov:CARLOTA GR MD 01/26/23 Aspirin (ASPIRIN 81) 81 Mg Tab, 81 MG PO DAILY, #90 TAB Prov:CARLOTA GR MD 01/26/23 Reported Medications Metformin HCl (Metformin Hydrochloride) 500 Mg/5 Ml La, 500 MG PO, ML 01/30/24 Metoprolol Succinate (Metoprolol Succinate Er) 50 Mg Tab, 100 MG PO DAILY for 30 Days, MG 01/30/24 Spironolactone (Spironolactone) 25 Mg Tab, 1 TAB PO DAILY, #90 TAB 1 Refill 01/30/24 Dapagliflozin Propanediol (Farxiga) 10 Mg Tab, 10 MG PO DAILY, TAB 01/30/24 Sacubitril-Valsartan (Entresto 24-26 mg) 1 Tab Tab, 1 TAB PO BID, TAB 01/30/24 Information Source: Patient Mode of Arrival: Ambulatory Past Medical History PAST MEDICAL HISTORY: CHF, DM, HTN, PR Surgical History: Hernia Repair Family History Family History: Reviewed,noncontributory to illness Social History Smoker: Non-Smoker Alcohol: Denies ETOH Use Drugs: Denies Drug Use Lives In: Home All Other Systems: Reviewed and Negative (SEE HPI) Physical Exam General Appearance: No Apparent Distress, Normal HEENT: Normal ENT Inspection, Pharynx Normal, TMs Normal Neck: Full Range of Motion, Non-Tender Respiratory: Lungs Clear, No Respiratory Distress, Normal Breath Sounds Cardiovascular: No Edema, No JVD, No Murmur, No Gallop, Normal Peripheral Pulses, Regular Rate/Rhythm Breast Exam: Deferred Gastrointestinal: Non Tender, Soft Genitalia: Deferred Pelvic: Deferred Rectal: Deferred Extremities: Normal range of motion, Non-tender, No pedal edema Musculoskeletal : Apperance: Normal Neurologic: Alert, No Motor Deficits, Normal Affect, Normal Mood, No Sensory Deficits Cerebellar Function: Normal Reflexes: NOT DONE Skin: Dry, Normal Color, Warm Lymphatic: No Adenopathy Was a procedure done? Was a procedure done?: Yes Sedation Sedation?: No Informed consent obtained: Yes Other Procedure Procedure PARAM-PEN EYE PRESSURE Indication PRESSURE BEHIND EYE WITH FLOATER Anesthetic TETRACAINE 0.1% ONE DROP Prep NONE Success 10mmHg OF OCULAR PRESSURE RIGHT EYE Informed consent obtained: Yes Risks, benefits, and alternati: Yes Notes PATIENT TOLERATED WELL WITH MINIMAL DISCOMFORT EENT DIFF Eye: Glaucoma, Iritis/Uveitis, Orbital Cellulits, Periorbital Cellulits, Retinal Artery Occlusion, Retinal Vein Occlusion Ear: N/A Nose: N/A Mouth: N/A Sore Throat: N/A X-Ray, Labs, Meds, VS Vital Signs Date Time Temp Pulse Resp B/P (MAP) Pulse Ox O2 Delivery O2 Flow Rate FiO2 01/12/25 03:10 98.4 58 18 100/65 (77) 96 98.4 01/12/25 03:10 58 18 96 Room Air 01/11/25 22:44 98.5 76 16 98/68 95 98.5 X-Ray, Labs, Meds, VS Comment SEE PROCEDURE NOTE. PATIENT GIVEN TORADOL 60 MG IM REPORTS IMPROVEMENT IN SYMPTOMS REQUESTING DISCHARGE AT THIS TIME. ADVISED PATIENT CALL AND SCHEDULE AN APPOINTMENT WITH OPHTHALMOLOGY WITHIN 24 HOURS. ADVISED TO RETURN TO THE ER FOR SUDDEN ONSET OF VISION LOSS, INCREASING PAIN WITH FLOATERS AND FLASHES, OR ANY CONCERNING SYMPTOMS. PATIENT AGREES WITH DISCHARGE PLAN OF CARE INDICATES UNDERSTANDING. Time of 1ST Reevaluation: 23:45 Reevaluation 1ST: Unchanged Time of 2ND Reevaluation: 01:45 Reevaluation 2ND: Improved Patient Education/Counseling: Diagnosis, Treatment, Prognosis, Need For Follow Up Family Education/Counseling: No Family Present SEPSIS Sepsis Screen Date sepsis recognized/suspect: Jan 11, 2025 Time Sepsis recognized/suspect: 2249 Recent Procedure: No On Antibiotic Therapy: No Respiratory Rate >20: No Heart Rate >90: No Temp<36 C (96.8 F) or >38.3 C: No SBP <90 or MAP <65 mmHG: No New Acute Mental Status Change: No Is the patient on CPAP, BIPAP,: No Vital Signs Date Time Temp Pulse Resp B/P (MAP) Pulse Ox O2 Delivery O2 Flow Rate FiO2 01/12/25 03:10 98.4 58 18 100/65 (77) 96 98.4 01/12/25 03:10 58 18 96 Room Air 01/11/25 22:44 98.5 76 16 98/68 95 98.5 Departure 1 Departure Time of Disposition: 02:07 Impression: Primary Impression: Ocular migraine Disposition: 01 HOME / SELF CARE / HOMELESS Condition: Stable Discharged With: Self Critical Care Note Critical Care Time?: No Stability Stability form required: HOLDEN Copeland Jan 12, 2025 02:08
[2025-01-12 03:10] VITALS: BP 100/65; PULSE 58; RESP 18; TEMP 98.4; O2SAT 96
[2025-01-12] MEDS: KETOROLAC TROMETH 60MG/2ML VIAL IM ONE (03:10)
== END 2025-01-12 03:10 | disposition home or self-care (01) ==
LOC: ER 22:34
DX: G43.109 Migraine with aura, not intractable, without status migrainosus (principal); I11.0 Hypertensive heart disease with heart failure; I50.9 Heart failure, unspecified; E11.9 Type 2 diabetes mellitus without complications; Z79.82 Long term (current) use of aspirin; Z79.84 Long term (current) use of oral hypoglycemic drugs; Z79.899 Other long term (current) drug therapy; Z98.890 Other specified postprocedural states